=== PATIENT | male | born 1995 | race Caucasian/White ===

== ENCOUNTER 2022-06-07 09:13 | Inpatient (IN) | payer BC ==
[~2022-06-07] VITALS: Ht 188 cm; Wt 68.8 kg
[2022-06-07] MEDS ORDERED: ONDANSETRON HCL 4 MG/2 ML VIAL IV ONE (09:45)
[2022-06-07] MEDS ORDERED: MORPHINE SULFATE 4 MG/ML SYR/VIAL IV ONE (09:45)
[2022-06-07] MEDS ORDERED: InsuLIN REG 1unit/0.01ml Soln (100units/ml) IV ONE (09:45)
[2022-06-07] MEDS ORDERED: SODIUM CHLORIDE 0.9% 1,000 ML IVB ONE (09:45)
[2022-06-07] MEDS ORDERED: AZITHROMYCIN 500MG/ 250ML 250 ML IV ONE (09:45)
[2022-06-07 10:49] LABS: Basophils # (auto) 0 10 ^3/uL (0-0.2); Basophils % (auto) 0.3 % (0.0-2.0); Eosinophils # (auto) 0 10 ^3/uL (0-0.8); Hematocrit 41.5 % (41.0-53.0); Hemoglobin 14.2 g/dL (13.5-17.5); Lymphocytes % (auto) 10.2 % (10.0-50.0); Mean Corpuscular Hemoglobin 29.9 pg (28.0-32.0); Mean Corpuscular Hgb Conc. 34.2 g/dL (32.0-36.0); Mean Corpuscular Volume 87.6 fL (80.0-100.0); Monocytes # (auto) 0.8 10 ^3/uL (0-1.3); Monocytes % (auto) 8.3 % (0.0-12.0); Neutrophils # (auto) 8.1 10 ^3/uL (1.6-8.6); Neutrophils % (auto) 81.2 % (37.0-80.0); Red Blood Cells 4.74 10^6/uL (4.5-5.90); Red Cell Distribution Width 12.1 % (11.8-14.3)
[2022-06-07 11:08] LABS: Albumin 3.8 g/dL (3.4-5.0); BUN/Creatinine Ratio 13.9; Calcium 8.8 mg/dL (8.5-10.1); Potassium 4.1 mmol/L (3.5-5.1)
[2022-06-07 11:12] LABS: Bilirubin, Total 0.9 mg/dL (0.2-1.0); Total Protein 7.3 g/dL (6.4-8.2)
[2022-06-07] MEDS ORDERED: ONDANSETRON HCL 4 MG/2 ML VIAL IV PRN (13:00)
[2022-06-07] MEDS ORDERED: ACETAMINOPHEN 325 MG TAB PO PRN (13:00)
[2022-06-07] MEDS ORDERED: DEXTROSE (50%) 50ML SYRG IV PRN (13:45)
[2022-06-07] MEDS: SODIUM CHLORIDE 0.9% 1,000 ML IV SCH ×2 (14:28→23:49)
[2022-06-07] MEDS: InsuLIN REG 1unit/0.01ml Soln (100units/ml) SC SCH ×2 (16:00→20:50)
[2022-06-07] MEDS: ACCU-CHEK COMFORT CURVE STRIP VI SCH ×2 (16:00→20:00)
[2022-06-07] MEDS ORDERED: ACETAMINOPHEN 500 MG TAB PO PRN (16:15)
[2022-06-07] MEDS ORDERED: ALBUTEROL SULF HFA 90MCG INH 200DOSE IN PRN (16:15)
[2022-06-07 17:22] LABS: Magnesium 1.9 mg/dL (1.6-2.6)
[2022-06-07 17:31] LABS: CRP High Sensitivity 13.6 mg/dL (< 0.3)
[2022-06-07 17:39] LABS: Thyroid Stimulating Hormone 1.2 uIU/mL (0.358-3.74)
[2022-06-07 17:48] VITALS: BP 166/89
[2022-06-07 20:07] VITALS: BP 166/89
[2022-06-07 21:36] VITALS: BP 108/58
[2022-06-08] MEDS: ACCU-CHEK COMFORT CURVE STRIP VI SCH ×6 (00:08→21:41)
[2022-06-08] MEDS: SODIUM CHLORIDE 0.9% 1,000 ML IV SCH ×3 (00:49→12:59)
[2022-06-08] MEDS: InsuLIN REG 1unit/0.01ml Soln (100units/ml) SC SCH ×5 (04:00→17:00)
[2022-06-08 04:50] VITALS: BP 114/66
[2022-06-08 05:13] LABS: Basophils # (auto) 0 10 ^3/uL (0-0.2); Basophils % (auto) 0.6 % (0.0-2.0); Eosinophils # (auto) 0.1 10 ^3/uL (0-0.8); Eosinophils % (auto) 1.4 % (0.0-7.0); Hematocrit 38.1 % (41.0-53.0); Hemoglobin 12.6 g/dL (13.5-17.5); Mean Corpuscular Hemoglobin 29.4 pg (28.0-32.0); Mean Corpuscular Hgb Conc. 33.2 g/dL (32.0-36.0); Mean Corpuscular Volume 88.7 fL (80.0-100.0); Monocytes # (auto) 0.7 10 ^3/uL (0-1.3); Monocytes % (auto) 9.8 % (0.0-12.0); Neutrophils # (auto) 4.2 10 ^3/uL (1.6-8.6); Neutrophils % (auto) 60.2 % (37.0-80.0); Nucleated Red Blood Cells % 0.1 %; Red Blood Cells 4.29 10^6/uL (4.5-5.90); Red Cell Distribution Width 12.3 % (11.8-14.3)
[2022-06-08 05:39] LABS: Albumin 3.2 g/dL (3.4-5.0); BUN/Creatinine Ratio 13.8; Calcium 8.6 mg/dL (8.5-10.1); Potassium 4.3 mmol/L (3.5-5.1)
[2022-06-08 05:42] LABS: Bilirubin, Total 0.6 mg/dL (0.2-1.0); Total Protein 6.5 g/dL (6.4-8.2)
[2022-06-08 09:01] VITALS: BP 138/83
[2022-06-08] MEDS ORDERED: AZITHROMYCIN 500MG/ 250ML 250 ML IV SCH (10:00)
[2022-06-08] MEDS: ZINC SULFATE 220mg CAP or TAB PO SCH (10:51)
[2022-06-08] MEDS: CHOLECALCIFEROL (VITD3) 2,000 UNIT CAP/TAB PO SCH (10:51)
[2022-06-08] MEDS ORDERED: AZITHROMYCIN 500MG/ 250ML 250 ML IV ONE (11:00)
[2022-06-08] MEDS ORDERED: DEXTROSE (50%) 50ML SYRG IV PRN (11:00)
[2022-06-08] MEDS ORDERED: PANTOPRAZOLE 40 MG/10 ML VIAL INJ IV ONE (11:00)
[2022-06-08] MEDS ORDERED: cefTRIAXone 1GM/50ML D5W 50 ML IV ONE (11:00)
[2022-06-08 13:00] VITALS: BP 132/78
[2022-06-08 16:52] VITALS: BP 112/79
[2022-06-08 22:00] VITALS: BP 128/76
[2022-06-08] MEDS ORDERED: InsuLIN REG 1unit/0.01ml Soln (100units/ml) SC SCH (22:00)
[2022-06-09] MEDS: SODIUM CHLORIDE 0.9% 1,000 ML IV SCH ×2 (00:12→14:14)
[2022-06-09 05:00] VITALS: BP 122/71
[2022-06-09] MEDS: InsuLIN REG 1unit/0.01ml Soln (100units/ml) SC SCH ×2 (06:40→11:30)
[2022-06-09] MEDS: ACCU-CHEK COMFORT CURVE STRIP VI SCH ×2 (06:40→11:30)
[2022-06-09 08:15] VITALS: BP 131/83
[2022-06-09 09:00] VITALS: BP 131/83
[2022-06-09] MEDS ORDERED: cefTRIAXone 1GM/50ML D5W 50 ML IV SCH (09:00)
[2022-06-09] MEDS: CHOLECALCIFEROL (VITD3) 2,000 UNIT CAP/TAB PO SCH (09:18)
[2022-06-09] MEDS: ZINC SULFATE 220mg CAP or TAB PO SCH (09:18)
[2022-06-09] MEDS ORDERED: PANTOPRAZOLE 40 MG/10 ML VIAL INJ IV SCH (10:00)
[2022-06-09] MEDS ORDERED: AZITHROMYCIN 500MG/ 250ML 250 ML IV SCH (10:00)
[2022-06-09 13:00] VITALS: BP 143/88
[2022-06-09 15:44] VITALS: BP 143/88
== END 2022-06-09 17:00 | disposition home or self-care (01) | DRG 871 ==
LOC: ER 09:13 → OVERFLOW 12:50 → CENTRAL 17:38
PROVIDERS: ADMIT Nurse Practitioner Family; ATTEND Internal Medicine
DX: A41.9 Sepsis, unspecified organism (principal); J12.82 Pneumonia due to coronavirus disease 2019; U07.1 COVID-19; E10.65 Type 1 diabetes mellitus with hyperglycemia; Z79.4 Long term (current) use of insulin
CPT/HCPCS: 36415; 71045; 80053; 82010; 82728; 82962; 83036; 83605; 83615; 83690; 83735; 84443; 85025; 85379; 86141; 87040; 87081; 93005; 96365; 96375; C9113; G0378; J0696; J1815; J2405

== ENCOUNTER 2023-08-22 10:32 | Inpatient (IN) | payer OTHER, BC ==
[~2023-08-22] VITALS: Ht 188 cm; Wt 70.5 kg
[2023-08-22 11:15] LABS: Basophils # (auto) 0 10 ^3/uL (0-0.2); Basophils % (auto) 0.3 % (0.0-2.0); Eosinophils # (auto) 0.1 10 ^3/uL (0-0.8); Eosinophils % (auto) 0.5 % (0.0-7.0); Hematocrit 42.6 % (41.0-53.0); Hemoglobin 14.2 g/dL (13.5-17.5); Lymphocytes # (auto) 1.4 10 ^3/uL (0.4-5.4); Lymphocytes % (auto) 10.8 % (10.0-50.0); Mean Corpuscular Hgb Conc. 33.3 g/dL (32.0-36.0); Mean Corpuscular Volume 90.2 fL (80.0-100.0); Monocytes % (auto) 7.8 % (0.0-12.0); Neutrophils # (auto) 10.7 10 ^3/uL (1.6-8.6); Neutrophils % (auto) 80.6 % (37.0-80.0); Red Blood Cells 4.72 10^6/uL (4.5-5.90); Red Cell Distribution Width 12.5 % (11.8-14.3); White Blood Cell 13.3 10^3/uL (4.4-10.8)
[2023-08-22 11:35] LABS: Alanine Aminotransferase 52 U/L (7-40); Albumin 4.7 g/dL (3.2-4.8); Alkaline Phosphatase 92 U/L (46-116); Anion Gap 8 (5-15); Aspartate Aminotransferase 21 U/L (13-40); BUN/Creatinine Ratio 12.5 (10.0-20.0); Blood Urea Nitrogen 13 mg/dL (9-23); Calcium 9.5 mg/dL (8.5-10.1); Carbon Dioxide 29 mmol/L (20-30); Chloride 105 mmol/L (98-107); Glucose 112 mg/dL (74-106); Potassium 3.8 mmol/L (3.5-5.1); Sodium 142 mmol/L (136-145); Total Protein 7.4 g/dL (5.7-8.2)
[2023-08-22] MEDS ORDERED: SODIUM CHLORIDE 0.9% 1,000 ML IV ONE ×2 (14:30)
[2023-08-22] MEDS ORDERED: PIPERACILLIN-TAZOB 3.375GM 100 ML IV ONE (14:45)
[2023-08-22] MEDS ORDERED: IOHEXOL 300 MG/ML 100ML BOTTLE IJ ONE (14:51)
[2023-08-22 15:57] LABS: Base Excess 3.1 mmol/L (-2.0-2.0)
[2023-08-22] MEDS ORDERED: KETOROLAC TROMETH 30 MG/ML 1ML VIAL IV ONE (16:30)
[2023-08-22] MEDS ORDERED: DEXTROSE (50%) 50ML SYRG IV PRN (16:30)
[2023-08-22] MEDS ORDERED: METOCLOPRAMIDE HCL 5MG/ml INJ 2ml VIAL IV PRN (16:30)
[2023-08-22] MEDS ORDERED: ONDANSETRON HCL 4 MG/2 ML VIAL IV PRN (16:30)
[2023-08-22] MEDS ORDERED: PANTOPRAZOLE 40 MG/10 ML VIAL INJ IV ONE (16:45)
[2023-08-22] MEDS ORDERED: ACETAMINOPHEN 325 MG TAB PO PRN (16:45)
[2023-08-22] MEDS ORDERED: MORPHINE SULFATE INJ 2 MG/ml SYRG IV PRN (16:45)
[2023-08-22] MEDS ORDERED: HYDROcodone-ACET 5/325MG TAB PO PRN (16:45)
[2023-08-22] MEDS ORDERED: DOCU-265 PO (16:48)
[2023-08-22] MEDS ORDERED: INSU100I49 SC (16:49)
[2023-08-22] MEDS: InsuLIN REG 1unit/0.01ml Soln (100units/ml) SC SCH ×3 (18:10→21:46)
[2023-08-22] MEDS: ACCU-CHEK COMFORT CURVE STRIP VI SCH ×2 (18:10→21:46)
[2023-08-22] MEDS: SODIUM CHLORIDE 0.9% 1,000 ML IV SCH (18:13)
[2023-08-22 21:44] VITALS: PULSE 70; RESP 16; O2SAT 99
[2023-08-23] MEDS: SODIUM CHLORIDE 0.9% 1,000 ML IV SCH (02:27)
[2023-08-23 02:30] VITALS: TEMP 98.3; O2SAT 98
[2023-08-23 02:31] VITALS: BP 146/88; PULSE 75; RESP 16
[2023-08-23] MEDS: InsuLIN REG 1unit/0.01ml Soln (100units/ml) SC SCH (07:00)
[2023-08-23] MEDS: ACCU-CHEK COMFORT CURVE STRIP VI SCH (07:00)
[2023-08-23 07:37] LABS: Alanine Aminotransferase 36 U/L (7-40); Albumin 3.7 g/dL (3.2-4.8); Alkaline Phosphatase 66 U/L (46-116); Anion Gap 9 (5-15); Aspartate Aminotransferase 20 U/L (13-40); BUN/Creatinine Ratio 16.7 (10.0-20.0); Bilirubin, Total 0.7 mg/dL (0.2-1.0); Blood Urea Nitrogen 12 mg/dL (9-23); Calcium 7.7 mg/dL (8.5-10.1); Carbon Dioxide 25 mmol/L (20-30); Chloride 107 mmol/L (98-107); Glucose 64 mg/dL (74-106); Potassium 4.1 mmol/L (3.5-5.1); Sodium 141 mmol/L (136-145); Total Protein 5.7 g/dL (5.7-8.2)
[2023-08-23 07:43] LABS: Basophils # (auto) 0 10 ^3/uL (0-0.2); Basophils % (auto) 0.2 % (0.0-2.0); Eosinophils # (auto) 0.1 10 ^3/uL (0-0.8); Hematocrit 39.6 % (41.0-53.0); Hemoglobin 13.2 g/dL (13.5-17.5); Lymphocytes # (auto) 1.7 10 ^3/uL (0.4-5.4); Lymphocytes % (auto) 19.2 % (10.0-50.0); Mean Corpuscular Hemoglobin 30.4 pg (28.0-32.0); Mean Corpuscular Hgb Conc. 33.4 g/dL (32.0-36.0); Mean Corpuscular Volume 90.9 fL (80.0-100.0); Monocytes # (auto) 0.8 10 ^3/uL (0-1.3); Monocytes % (auto) 8.6 % (0.0-12.0); Neutrophils # (auto) 6.3 10 ^3/uL (1.6-8.6); Red Blood Cells 4.36 10^6/uL (4.5-5.90); Red Cell Distribution Width 12.7 % (11.8-14.3); White Blood Cell 8.8 10^3/uL (4.4-10.8)
[2023-08-23] MEDS ORDERED: cefTRIAXone 1GM/50ML D5W 50 ML IV SCH (09:00)
[2023-08-23] MEDS ORDERED: PANTOPRAZOLE 40 MG/10 ML VIAL INJ IV SCH (10:00)
== END 2023-08-23 08:24 | disposition left against medical advice (07) | DRG 863 ==
LOC: ER 10:32 → OVERFLOW 16:48
PROVIDERS: ADMIT Internal Medicine Pulmonary Disease; ATTEND Student in an Organized Health Care Education/Training Program
DX: T81.40XA Infection following a procedure, unspecified, initial encounter (principal); D72.829 Elevated white blood cell count, unspecified; E86.0 Dehydration; E11.9 Type 2 diabetes mellitus without complications; Z53.29 Procedure and treatment not carried out because of patient's decision for other reasons; Y83.8 Other surgical procedures as the cause of abnormal reaction of the patient, or of later complication, without mention of misadventure at the time of the procedure; Z82.49 Family history of ischemic heart disease and other diseases of the circulatory system; Y92.89 Other specified places as the place of occurrence of the external cause
CPT/HCPCS: 36415; 36600; 70491; 80053; 82805; 82962; 83036; 83605; 85025; 87040; C9113; G0378; J1815; J1885; J2543